=== PATIENT | male | born 1945 | race Caucasian/White ===

== ENCOUNTER → 2017-07-03 | Outpatient (CLI) | payer MEDICARE, BC | LOC: COL.LAB 16:02 | DX: Z01.812 Encounter for preprocedural laboratory examination (principal) ==

== ENCOUNTER 2017-07-17 14:29 | Inpatient (IN) | payer MEDICARE, BC ==
[~2017-07-17] VITALS: Ht 175.3 cm; Wt 76.0 kg
[2017-07-28] VITALS (10 sets, daily range): BP systolic 103–136; BP diastolic 66–82; PULSE 52–71; TEMP 97.5–98.5
[2017-07-28] MEDS ORDERED: TOPROL XL100 MG PO (05:59)
[2017-07-28] MEDS ORDERED: HCTZ 25MG TAB25 MG PO (06:00)
[2017-07-28] MEDS ORDERED: K-DUR20 MEQ PO (06:00)
[2017-07-28] MEDS ORDERED: NORVASC 10MG10 MG PO (06:01)
[2017-07-29] VITALS: BP 119/74; PULSE 78; TEMP 98.3
[2017-07-29 03:54] VITALS: BP 105/69; PULSE 76; TEMP 98.4
[2017-07-29 06:58] LABS: HEMATOCRIT 37.3 % (42.0-52.0); HEMOGLOBIN 13.2 g/dl (13.5-18.0)
[2017-07-29 08:17] VITALS: BP 118/73; PULSE 88; TEMP 98.3
[2017-07-29] MEDS ORDERED: XARELTO10 MG PO (09:30)
[2017-07-29] MEDS ORDERED: NORCO 325 MG-7.1 TAB PO (09:31)
[2017-07-29] MEDS ORDERED: ROXICODONE 55 MG/TAB PO (09:32)
[2017-07-29 12:00] VITALS: BP 110/75; PULSE 80; TEMP 98.5
[2017-07-29 16:13] VITALS: BP 127/71; PULSE 85; TEMP 98.4
== END 2017-07-29 17:40 | disposition home or self-care (01) | DRG 470 ==
LOC: JCC 07-28 05:40
PROVIDERS: Orthopaedic Surgery
PROC: 0SRB0JA Replacement of Left Hip Joint with Synthetic Substitute, Uncemented, Open Approach (ICD-10-PCS; principal; 2017-07-28 07:30)
DX: M16.12 Unilateral primary osteoarthritis, left hip (principal); I10 Essential (primary) hypertension; Z87.891 Personal history of nicotine dependence
CPT/HCPCS: A4216; A9284; C1776; J0690; J1100; J1885; J2250; J2274; J2405; J2550; J2704; J7042; J7120